=== PATIENT | female | born 1945 | race Caucasian/White ===

== ENCOUNTER → 2018-01-28 07:32 | Outpatient (CLI) | payer MEDICARE, OTHER ==
[~2018-01-28] VITALS: Ht 162.6 cm; Wt 106.8 kg
--- NOTE | ~2018-01-28 | HEMODYNAMI ---
PATIENT:NOELLE WEINSTEIN [facility] MEDICAL RECORD: [id number] : 49 LOCATION:[facility] ADMISSION DATE: 01/28/18 Generatedon:01/28/201810:36 Patient name: NOELLE WEINSTEIN Patient #: [id number] SSN: : 1945 Date of study: 01/28/2018 Page: Of Hemodynamic Procedure Report Patient Data Patient Demographics Procedure consent was obtained First Name: NOELLE Gender: Female Last Name: JS : 1945 [facility] Initial: [facility] Age: 72 year(s) Patient #: [id number] Race: Additional ID: [id number] Contact details Address: [address] [place] [address] ROAD State: [place] City: [place] Zip code: [address] Past Medical History Allergies Allergen Reaction Date Comments Reported Amoxicillin 10/01/2015 Aspirin 10/01/2015 Penicillins 10/01/2015 Other allergy 01/28/2018 AMOXICILLIN, ASA, PCN Admission Admission Data Admission Date: 01/28/2018 Admission Time: 7:32 Lab Results Lab Result Date: 01/28/2018 Lab Result Time: 0:00 Biochemistry Name Units Result Min Max BUN mg/dl 25 --(----)-* 7 18 Creatinine mg/dl 0.8 --(-*--)-- 0.6 1.3 CBC Name Units Result Min Max Hemoglobin g/dl 13 -*(----)-- 13.5 17.5 Procedure Procedure Types Cath Procedure Diagnostic Procedure LHC LHC w/Coronaries FFR/IVUS Intra-Coronary IVUS Initial Sedation Charges Moderate Sedation up to 15 minutes PCI Procedure Coronary Stent Coronary Stent Initial Procedure Description Procedure Date Procedure Date: 01/28/2018 Procedure Start Time: 10:16 Procedure End Time: 10:36 Procedure Staff Name Function Martin Moreno MD Performing Physician Roselyn Armando RT Monitor Angel Bradshaw RT Scrub Yohannes Caldwell RN Nurse Procedure Data Cath Procedure Fluoroscopy Diagnostic fluoroscopy Total fluoroscopy Time: 3.8 time: 3.8 min min Diagnostic fluoroscopy Total fluoroscopy dose: 620 dose: 620 mGy mGy Contrast Material Contrast Material Type Amount (ml) Isovue 300 88 Entry Location Entry Primary Successful Side Size Upsize Upsize Entry Closure Mello ccessful Closure Location (Fr) 1 (Fr) 2 (Fr) Remarks Device Remarks Radial Right 6 Fr Mechanical artery Short Compression Estimated blood loss: 10 ml Diagnostic catheters Device Type Used For End Catheter Placement DIAGNOSTIC [place] 110cm 5 Procedure Fr catheter ([id number]) Procedure Complications No complications Procedure Medications Medication Administration Route Dosage Oxygen etCO2 Nasal cannula 2 l/min Heparin Flush Bag added to field 2 bags (1000units/500ml NS) 0.9% NaCl I.V. 100 ml/hr Radial Cocktail added to field 1 syringe (Verapomil 2mg/Nitro 400mcg/Heparin 1500units) Fentanyl I.V. 50 mcg Versed I.V. 1 mg Fentanyl I.V. 50 mcg Versed I.V. 1 mg Radial Cocktail I.A. 1 syringe (Verapomil 2mg/Nitro 400mcg/Heparin 1500units) Heparin Bolus I.V. 4000 units Hemodynamics Rest HGB: 13 (g/dl) Heart Rate: 62 (bpm) Snapshots Pre Cath Intra NCS Post Cath Vital Signs Time Heart Resp SPO2 etCO2 NIBP (mmHg) Rhythm Pain Sedation Rate (ipm) (%) (mmHg) Status Level (bpm) 10:01:55 79 15 99 38 170/73(137) NSR 0 (11) 10(A) , No pain 10:06:54 60 16 100 29 157/69(140) NSR 0 (11) 10(A) , No pain 10:12:43 58 15 99 37.2 149/67(110) NSR 0 (11) 9(A) , No pain 10:17:33 57 16 95 40.9 126/59(91) NSR 0 (11) 9(A) , No pain 10:22:26 69 17 93 42.4 118/63(85) NSR 0 (11) 9(A) , No pain 10:27:17 69 16 96 43.1 117/56(89) NSR 0 (11) 9(A) , No pain 10:32:08 76 16 98 42.4 113/58(90) NSR 0 (11) 9(A) , No pain 10:33:46 71 17 99 42.4 114/60(87) NSR 0 (11) 9(A) , No pain Medications Time Medication Route Dose Verified Delivered Reason Not es Effectiveness by by 10:03:43 Oxygen etCO2 2 l/min Martin Sheffield Per physician Nasal Josh Caldwell RN cannula 10:03:51 Heparin Flush added 2 bags Martin Sheffield used for Bag to Josh Caldwell RN procedure (1000units/500ml field NS) 10:03:59 0.9% NaCl I.V. 100 Martin Sheffield Per physician ml/hr Josh Caldwell RN 10:04:07 Radial Cocktail added 1 Martin Sheffield used for (Verapomil to syringe Josh Caldwell RN procedure 2mg/Nitro field 400mcg/Heparin 1500units) 10:07:00 Fentanyl I.V. 50 mcg Martin Sheffield for sedation Josh Caldwell RN 10:07:06 Versed I.V. 1 mg Martin Sheffield for sedation Josh Caldwell RN 10:18:12 Fentanyl I.V. 50 mcg Martin Sheffield for sedation Josh Caldwell RN 10:18:15 Versed I.V. 1 mg Martin Sheffield for sedation Josh Caldwell RN 10:18:26 Radial Cocktail I.A. 1 Martin Salazar for (Verapomil syringe Josh Moreno MD vasodilation 2mg/Nitro 400mcg/Heparin 1500units) 10:29:44 Heparin Bolus I.V. 4000 Martin Salazar for units Josh Moreno MD anticoagulation Procedure Log Time Note 9:40:17 Angel Bradshaw RT(R) sent for patient. Start room use. 9:48:18 Time tracking: Regular hours 9:48:23 Plan of Care:Hemodynamics will remain stable., Cardiac rhythm will remain stable., Comfort level will be maintained., Respiratory function will remain adequate., Patient/ family verbilizes understanding of procedure., Procedure tolerated without complication., Recovers from procedure without complications.. 9:48:25 Signed procedure consent form obtained from patient. 9:49:18 H&P Date Dictated: 01/04/2018 Within 30 days and on chart., H&P Addendum completed by physician on day of procedure. (MUST COMPLETE FOR ALL OUTPATIENTS). 9:49:36 Patient allergic to Other allergyAMOXICILLIN, ASA, PCN 9:53:41 Patient received from Pre/Post Procedure Room to CCL 1 Alert and oriented. Tansferred to table in Supine position. 9:53:42 Warm blankets applied, and karen hugger turned on for patient comfort. 9:53:43 Correct patient and procedure confirmed by team. 9:53:44 ECG and BP/O2 sat monitors applied to patient. 10:00:39 Vital chart was started 10:02:08 Baseline sample Acquired. 10:02:12 Rhythm: sinus rhythm 10:02:13 Full Disclosure recording started 10:02:15 Pre-procedure instructions explained to patient. 10:02:15 Pre-op teaching completed and patient verbalized understanding. 10:02:20 Family in patients room. 10:02:21 Patient NPO since Midnight. 10:02:29 Is the patient allergic to Iodine/contrast media? No. 10:02:31 Is patient on blood thinner?Yes 10:02:36 ACC The patient was administered the following blood thiners within the last 24 hours: ACCPlavix 10:02:37 Patient diabetic? No. 10:02:43 Patient not . Patient is over age 55. 10:02:45 Previous problem with sedation/anesthesia? No ? 10:02:46 Snore? Yes 10:02:47 Sleep apnea? Yes 10:02:48 Deviated septum? No 10:02:49 Opens mouth fully? Yes 10:02:51 Sticks out tongue? Yes 10:03:26 Airway obstruction? Yes CHRONIC BRONCHITITS 10:03:29 Dentures? No ? 10:03:31 Modified Boo's test Ulnar < 7 seconds 10:03:33 Patient pain scale 0/10 ?. 10:03:41 IV patent on arrival in right forearm with 0.9% NaCl at O. 10:03:43 Oxygen 2 l/min etCO2 Nasal cannula was administered by Yohannes Caldwell RN; Per physician; 10:03:47 Right Radial & Right Groin area was prepped with chlora-prep and draped in sterile fashion 10:03:49 Alarms reviewed by R. N. 10:03:49 Sharps counted by scrub and verified by R.N. 10:03:51 Heparin Flush Bag (1000units/500ml NS) 2 bags added to field was administered by Yohannes Caldwell RN; used for procedure; 10:03:59 0.9% NaCl 100 ml/hr I.V. was administered by Yohannes Caldwell RN; Per physician; 10:04:07 Radial Cocktail (Verapomil 2mg/Nitro 400mcg/Heparin 1500units) 1 syringe added to field was administered by Yohannes Caldwell RN; used for procedure; 10::07 --------ALL STOP TIME OUT------ 10::07 Final Timeout: patient, procedure, and site verified with staff and physician. All members of the team are in agreement. 10:06:09 Right Radial & Right Groin site verified by team. 10:06:12 Physical assessment completed. ASA score P 2 - A patient with mild systemic disease as per Martin Moreno MD. 10:06:15 Sedation plan: IV Moderate Sedation Medication:Versed, Fentanyl 10:06:19 Use device set Radial Dx or PCI 10:06:44 ACIST Syringe (31245) opened to sterile field. 10:06:46 Bag Decanter (2001S) opened to sterile field. 10:06:47 ACIST Hand Control (05599) opened to sterile field. 10:06:47 ACIST Manifold (67808) opened to sterile field. 10:06:48 Tegaderm 4 x 4 (1626W) opened to sterile field. 10:06:50 Medline Cath Pack ([id number]) opened to sterile field. 10:06:51 SHEATH 6FR Slender ([id number]) opened to sterile field. 10:06:51 DIAGNOSTIC WIRE .035 260cm J wire (256486) opened to sterile field. 10:07:00 Fentanyl 50 mcg I.V. was administered by Yohannes Caldwell RN; for sedation; 10:07:06 Versed 1 mg I.V. was administered by Yohannes Caldwell RN; for sedation; 10:08:42 Lab Result : BUN 25 mg/dl 10:08:42 Lab Result : Hemoglobin 13 g/dl 10:08:42 Lab Result : Creatinine 0.8 mg/dl 10:12:14 Zero performed for pressure channel P1 10:15:57 Procedure started. 10:16:23 Local anesthetic to right radial artery with Lidocaine 2% by Martin Moreno MD.INITIAL ACCESS ONLY 10:17:23 MBrace Wrist Support ([id number]) opened to sterile field. 10:18:12 Fentanyl 50 mcg I.V. was administered by Yohannes Caldwell RN; for sedation; 10:18:15 Versed 1 mg I.V. was administered by Yohannes Caldwell RN; for sedation; 10:18:26 Radial Cocktail (Verapomil 2mg/Nitro 400mcg/Heparin 1500units) 1 syringe I.A. was administered by Martin Moreno MD; for vasodilation; 10:18:33 A 6 Fr Short sheath was inserted into the Right Radial artery 10:18:47 A DIAGNOSTIC [place] 110cm 5 Fr catheter (473024) was advanced over the wire and used for Procedure. 10:19:35 LV gram done using [place] LEON 10:19:38 Injector settings: Ml/sec: 7, Volume: 15, 10:20:19 EF : 60 % 10:20:45 RCA angiography performed. 10:21:27 LCA angiography performed. 10:21:33 INFLATOR Merit BasixCompak (AN6862) opened to sterile field. 10:21:40 CHOICE PT Extra Support 182cm wire ([id number]) opened to sterile field. 10:21:44 [place] IVUS Catheter (45580K) opened to sterile field. 10:22:21 GUIDE 6FR AR 1.0 catheter (NE6RI84) opened to sterile field. 10:23:15 6 Fr AR 1 guide catheter was inserted over the wire 10:24:44 CHOICE ES 182 wire advanced. 10:24:46 Wire advanced across lesion. 10:24:54 IVUS catheter advanced over wire. 10:28:29 IVUS pass to RCA lesion performed. 10:28:32 IVUS catheter removed over wire. 10:29:44 Heparin Bolus 4000 units I.V. was administered by Martin Moreno MD; for anticoagulation; 10:30:24 Place stent Inflation Number: 1 A TYREL RX 3.0 x 18 stent ([id number]) was prepped and advanced across the Mid RCA. The stent was deployed at 19 TARIQ for 0:10 (min:sec). 10:30:48 Wire removed. 10:30:48 Guide catheter removed. 10:31:22 TR BAND Standard ([id number]) opened to sterile field. 10:31:34 Procedure ended.(Physican Out) 10:31:39 Sheath removed intact; hemostasis achieved with Mechanical Compression to the Right Radial artery. 10:33:25 Fluoroscopy time 03.80 minutes. 10:33:28 Fluoroscopy dose: 620 mGy 10:33:28 Flurop Dose total: 620 10:33:35 Contrast amount:Isovue 300 88ml. 10:33:37 Sharps counted by scrub and verified by R.N. 10:33:38 TR band inflated with 10cc of air. 10:33:42 Post-procedure physical assessment completed. ASA score P 2 - A patient with mild systemic disease as per Martin Moreno MD. 10:33:46 Post procedure rhythm: unchanged. 10:33:49 Estimated blood loss: 10 ml 10:33:50 Post procedure instruction explained to patient.Patient verbalizes understanding. 10:33:50 Patient needs reinforcement of post procedure teaching. 10:34:14 Procedure type changed to Cath procedure, Diagnostic procedure, LHC, LHC w/Coronaries, FFR/IVUS, Intra-Coronary IVUS Initial, Sedation Charges, Moderate Sedation up to 15 minutes, PCI procedure, Coronary Stent, Coronary Stent Initial 10:36:04 Procedure and supply charges have been captured, reviewed, submitted and are correct. 10:36:08 Procedure Complication : No complications 10:36:12 Vital chart was stopped 10:36:13 See physician's report for complete and final results. 10:36:14 Report given to Pre/Post Procedure Room. 10:36:17 Patient transfered to Pre/Post Procedure Room with Bed. 10:36:19 Procedure ended. 10:36:19 Full Disclosure recording stopped 10:36:22 End room use (Document Last) Intervention Summary Intervention Notes Time ActionType Lesion and Equipment Used Action# Pressure Duration Attributes 10:30:24 Place stent Mid RCA TYREL RX 3.0 x 1 19 00:10 18 stent ([id number]) Device Usage Item Name Manufacture Quantity Catalog Number Hospital Part Current M inimal Lot# / Charge Number Stock Stock Serial# Code ACIST Syringe Acist 1 55846 925136 636238 759835 2 0 (00216) [employer] Inc Bag Decanter Microtek 1 2002S 846160 07948 390415 5 () Medical Inc. ACIST Hand Acist 1 73767 808166 579410 531786 5 Control Medical (83880) Systems Inc ACIST Manifold Acist 1 26559 899098 764123 559408 5 (66210) Medical Systems Inc Tegaderm 4 x 4 3M 1 1626W 349086 543362 444378 5 (1626W) Medline Cath Cardinal 1 [id number] 928889 32018 701484 5 [facility] ([id number]) SHEATH 6FR Terumo 1 [id number] 614246 727849 922340 4 0 Slender ([id number]) DIAGNOSTIC [place] 1 095823 222753 920268 379418 3 0 WIRE .035 260cm J wire (537963) MBrace Wrist Advanced 1 140-0250-00 157111 77681 966212 5 Support Vascular ([id number]) Dynamics DIAGNOSTIC Terumo 1 40-7023 077883 889406 785502 5 [place] 110cm 5 Fr catheter (518875) INFLATOR Merit Merit 1 EL0302 896520 469238 288945 1 5 Single Touch Systems (HF8667) CHOICE PT [place] 1 [id number] 187189 319235 720727 5 Extra Support Scientific 182cm wire (1970265Y7) [place] 1 17759V 682406 583025 293947 8 [place] IVUS Catheter (51581V) GUIDE 6FR AR Medtronic 1 [id number] 940193 39638 831117 1 1.0 catheter (OX5XC41) TYREL RX 3.0 x Medtronic 1 [id number] 437473 7163209 888572 5 [id number] 18 stent ([id number]) TR BAND Terumo 1 [id number] 348382 638270 665056 4 0 Standard ([id number]) Signature Audit Holcomb Stage Time Signature Unsigned Intra-Procedure 01/28/2018 Roselyn Armando 10:36:39 AM RT(R) Signatures Monitor : Roselyn Armando Signature : RT Date : Time : [address] [place] [address]
--- NOTE | ~2018-01-28 | OP ---
PATIENT NAME: NOELLE WEINSTEIN MEDICAL RECORD: [id number] :49 LOCATION:D.[facility] ADMISSION DATE: SURGEON: MARSHA JONES MD DATE OF OPERATION: 01/28/2018 PROCEDURES: 1. PTCA stent RCA. 2. Intravascular ultrasound. 3. Left heart catheterization. 4. Selective coronary angiography. 5. Left ventriculogram. INDICATION: Angina and coronary artery disease. PROCEDURE IN DETAIL: After informed consent was obtained and after a detailed description of the risks, benefits as well as alternative therapies, the patient elected to proceed with angiogram and angioplasty. The right radial area is prepped and draped in normal sterile fashion. Right radial artery was cannulated via modified technique with placement of 6-[place] sheath. All catheter exchanges through this sheath. FINDINGS: Left ventriculogram was performed in standard 30-degree DE LEON view, reveals good cardiac wall motion throughout all segments. Overall ejection fraction estimated at 60%. SELECTIVE CORONARY ANGIOGRAPHY: 1. Left main is with no significant angiographic disease. 2. Left anterior descending has anterior descending has mild irregularities, but no flow-limiting stenosis. 3. The left circumflex has mild irregularities, but no flow-limiting stenosis. 4. The right coronary has previously placed stent. Intravascular ultrasound reveals that there is 65% to 70% in-stent restenosis throughout. PTCA STENT OF THE RIGHT CORONARY: The stent used was a 3.0 x 18 mm [place]. Result was 0% residual stenosis. OVERALL IMPRESSION: Successful PTCA stent of the RCA going from 70% initial stenosis to 0% residual stenosis. TRANSINT:[id number] Voice Confirmation ID: [id number] DOCUMENT ID: [id number] MARSHA JONES MD at 0956 CC: [id number] DICTATION DATE: 01/28/18 1036 CCO: 01/28/18 1147 DEP CLI 01/28/18 [place] [address]
[~2018-01-28 07:32] MED LIST: AMBIEN10 MG PO; ANORO ELLIPTA1 EACH INH; BETA CAROT10000 UNIT; COLACE100 MG PO; ECHINACEA; EFFEXOR100 MG PO; LASIX20 MG PO; LIPITOR40 MG PO; LYRICA100 MG PO; METAMUCIL PACKE1 PKT PO; MIRALAX17 GM PO; NEURONTIN 300300 MG PO; OCUVITE TABLET1 TA1 PO; OMEPRAZOLE40 MG PO; OXYBUTYNIN CHLOR5 MG PO; PLAVIX75 MG PO; PROAIR HFA8.5 GM INH; REMERON30 MG PO; REQUIP0.25 MG PO; ROXICODONE15 MG PO; SINGULAIR10 MG PO; SYNTHROID100 MCG PO; TOPROL XL25 MG PO; TYLENOL W/CODEI1 TAB PO; VALIUM5 MG; VITAMIN B-121000 MCG PO; VITAMIN B-6100 MG PO; VITAMIN C1000 MG PO; ZANTAC150 MG PO; ZESTORETIC 20-1 EACH PO
[2018-01-28 08:30] VITALS: BP 188/64; Ht 162.6 cm; Wt 106.8 kg
[2018-01-28 08:57] LABS: BASOPHILS 0.3 % (0-2); EOSINOPHILS 0.8 % (0-7); IMMATURE GRANULOCYTES 0.3 % (0-5); LYMPHOCYTES 25.3 % (15-50); MCH 29.5 pg (26.0-34.0); MCHC 33.3 g/dL (31.0-37.0); MCV 88.6 fL (80.0-100.0); MEAN PLATELET VOLUME 9.6 fL (7.4-10.4); NEUTROPHILS 64.3 % (40-80); PLATELET COUNT 212 10x3/uL (130-400); RDW 13.7 % (11.5-14.5)
[2018-01-28 09:09] LABS: CALC OSMOLALITY 283 mosm/kg (275-300); CALCIUM 9.3 mg/dL (8.5-10.1); CARBON DIOXIDE 25.4 mmol/L (21.0-32.0); CHLORIDE - SERUM 103 mmol/L (98-107); CREATININE - SERUM 0.8 mg/dL (0.6-1.3); GLUCOSE 85 mg/dL (74-106); POTASSIUM - SERUM 4.5 mmol/L (3.5-5.1); SODIUM 141 mmol/L (136-145); UREA NITROGEN 25 mg/dL (7-18); eGFR NON AFRICAN AMERICAN 75 mL/min (90-120)
== END | disposition home or self-care (01) ==
LOC: D.CATH 07:32
PROVIDERS: Internal Medicine Interventional Cardiology
DX: I25.119 Atherosclerotic heart disease of native coronary artery with unspecified angina pectoris (principal); Z01.812 Encounter for preprocedural laboratory examination
CPT/HCPCS: 92978; 93458; C9600

== ENCOUNTER → 2019-02-21 10:23 | Outpatient (CLI) | payer MEDICARE, OTHER ==
[2018-01-28 08:30] VITALS: BMI 40.4
--- NOTE | 2019-02-24 16:41 | EC ---
PATIENT:NOELLE WEINSTEIN DATE OF SERVICE: 02/21/19 SEX: F MEDICAL RECORD: [id number] DATE OF : [birth year] LOCATION:D[facility] AGE OF PATIENT: 73 ADMISSION DATE: 02/21/19 REFERRING PHYSICIAN: INTERPRETING PHYSICIAN: MARSHA MORENO MD ECHOCARDIOGRAM REPORT ECHO CHARGES 4 ECHO COMPLETE Date: 02/21/19 CLINICAL DIAGNOSIS: MURMUR SYSTOLIC ECHOCARDIOGRAPHIC MEASUREMENTS (adult normal given) AC root (d.<3.7cm) 3.0 cm LV Septum d (<1.2 cm> 1.5 cm Valve Excursion 1.3 cm LV Septum (systole) 1.7 cm Left Atria (s.<4.0cm> 3.8 cm LVPW d(<1.2cm) 1.4 cm RV (d.<2.3cm) 3.6 cm LVPW (sytole) 1.5 cm LV diastole(<5.6CM) 5.5 cm MV E-F(>70mm/sec) cm LV systole 3.4 cm LVOT Diameter 1.7 cm MV exc.(>10mm) 1.8 cm Est.ejection fraction (50-75%) % DOPPLER: LVIT cm/sec A 119 cm/sec E 86.0 cm/sec LA cm/sec RVSP 24 mmHg LVOT 123 cm/sec AOP1/2T m/s Asc. Ao 224 cm/sec RVOT 112 cm/sec RA cm/sec PA 124 cm/sec AV Gradient Peak 20.03mmHg AV Mean 10.16mmHg AV Area 1.3 cm MV Gradient Peak 6.33 mmHg MV Mean 2.61 mmHg MV Area cm COMMENTS: Administration Vice President: Esperanza GILLIAM Clinical Lab Clerk: 1 Dr. Moreno TAPE# PACS Pericardial Effusion N DATE OF SERVICE: 02/21/2019 FINDINGS: 1. Left ventricular chamber size is within normal limits. Left ventricular systolic function is normal. Overall ejection fraction is estimated at 55%. 2. Left atrium, right atrium, and right ventricle chamber sizes are within normal limit. 3. Valvular structures: Aortic valve demonstrates aortic sclerosis, but no significant aortic stenosis. Remaining valvular structures have normal structure and motion. ECHOCARDIOGRAM REPORT [id number] NOELLE WEINSTEIN [facility] 4. Doppler interrogation reveals trace mitral regurgitation and trace tricuspid regurgitation. No other valvular insufficiency or stenosis. Pulmonary systolic pressure is normal, estimated at 24 mmHg. 5. No evidence of pericardial effusion or left ventricular thrombus. TRANSINT:[id number] Voice Confirmation ID: [id number] DOCUMENT ID: [id number] MARSHA MORENO MD at 1641 CC: [id number] DICTATION DATE: 02/22/19 1216 [employer]UTIONS DELIVERY CONSULTANT: 02/22/19 1236 DEP CLI 02/21/19 [address] [place] [address]
== END | disposition home or self-care (01) ==
LOC: D.HCCARDIO 10:23
PROVIDERS: ATTEND Internal Medicine Interventional Cardiology
DX: R01.1 Cardiac murmur, unspecified (principal)